=== PATIENT | female | born 1940 | race Caucasian/White ===

== ENCOUNTER 2018-02-14 08:56 | Outpatient (CLI) | payer MEDICARE, BC ==
--- NOTE | 2018-02-14 10:05 | ULT ---
PELVIC SONOGRAM TRANSABDOMINAL AND TRANSVAGINAL IMAGING WITH DUPLEX EVALUATION: Date: 02/14/18 HISTORY: Pelvic pain. Cyst. FINDINGS: Urinary bladder decompressed. Uterus surgically absent. No free fluid. At the right adnexa, oval cyst measures up to 3.3 x 2.8 cm greatest diameter. Minimal residual ovaria n tissue. Good color and spectral Doppler flow. Left ovary not visualized with transabdominal or bailon svaginal imaging. No masses apparent. IMPRESSION: 1. Status post hysterectomy. 2. Right ovarian cyst, 3.2 cm. POS: [facility]
== END 2018-02-14 08:57 | disposition home or self-care (01) ==
LOC: SCSULT 08:56
PROVIDERS: ATTEND Family Medicine
DX: N83.201 Unspecified ovarian cyst, right side (principal); Z90.710 Acquired absence of both cervix and uterus
CPT/HCPCS: 76856

== ENCOUNTER 2020-02-12 15:25 | Outpatient (CLI) | payer MEDICARE, BC ==
--- NOTE | 2020-02-12 16:09 | RAD ---
RIGHT LONG FINGER THREE VIEWS: 02/12/20 INDICATION: History of injury. COMPARISON: None. FINDINGS: There is IP osteoarthrosis involving the right long finger without evidence of acute fracture. There is diffuse osteopenia. No radiopaque foreign body is demonstrated. 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 POS: [facility]
== END 2020-02-12 15:26 | disposition home or self-care (01) ==
LOC: SCSRAD 15:25
PROVIDERS: ATTEND Family Medicine
DX: S69.91XA Unspecified injury of right wrist, hand and finger(s), initial encounter (principal); M19.041 Primary osteoarthritis, right hand

== ENCOUNTER 2023-07-23 11:09 | Outpatient (CLI) | payer MEDICARE, BC | END 2023-07-23 11:10 | disposition home or self-care (01) | LOC: SCSRAD 11:09 | PROVIDERS: ATTEND Nurse Practitioner Family | DX: M79.672 Pain in left foot (principal); M77.52 Other enthesopathy of left foot and ankle; Z98.890 Other specified postprocedural states ==

== ENCOUNTER 2024-09-07 12:06 | Outpatient (CLI) | payer MEDICARE, BC | END 2024-09-07 12:07 | disposition home or self-care (01) | LOC: SCSRAD 12:06 | PROVIDERS: ATTEND Student in an Organized Health Care Education/Training Program | DX: R07.81 Pleurodynia (principal) ==